=== PATIENT | female | born 1965 | race Caucasian/White ===

== ENCOUNTER → 2020-07-01 | Outpatient (CLI) | payer SELFPAY ==
[~2020-07-01] MED LIST: AMOXICILLIN500 MG PO; ATARAX25 MG PO; DILAUDID8 MG PO; MOTRIN800 MG PO; PREDNISONE20 MG PO; TRAMADOL HCL50 MG PO; TRIMOX500 MG PO
== END | disposition home or self-care (01) ==
LOC: COVID19 13:31
PROVIDERS: ATTEND Internal Medicine
DX: Z20.822 Contact with and (suspected) exposure to COVID-19 (principal)

== ENCOUNTER 2022-01-14 20:24 | Emergency (ER) | payer MEDICAID ==
[2022-01-14 20:30] VITALS: BP 122/71
== END 2022-01-14 23:44 | disposition home or self-care (01) ==
LOC: ED 20:24
DX: H11.32 Conjunctival hemorrhage, left eye (principal); R51.9 Headache, unspecified; Z79.899 Other long term (current) drug therapy

== ENCOUNTER 2022-08-11 18:58 | Emergency (ER) | payer OTHER ==
[~2022-08-11] VITALS: Ht 162.5 cm; Wt 63.5 kg
[2022-08-11 19:24] VITALS: BP 138/77
[2022-08-11 20:01] LABS: BASO % 0.4 % (0.0-1.0); EOS # 0.4 10*3/uL (0.0-0.4); EOS % 4.3 % (1.0-4.0); HEMATOCRIT 39.2 % (37.0-47.0); LYMPH # 0.9 10*3/uL (1.3-4.4); LYMPH % 11.3 % (27.0-41.0); MEAN CELL VOLUME 86.9 fl (81.0-99.0); MEAN CORPUSCULAR HGB 28.6 pg (27.0-31.0); MEAN CORPUSCULAR HGB CONC 32.9 g/dl (33.0-37.0); MEAN PLATELET VOLUME 8.7 fl (9.6-12.3); MONO # 0.7 10*3/uL (0.1-1.0); MONO % 8.6 % (3.0-9.0); NEUT # 6.1 10*3/uL (2.3-7.9); NEUT % 75.3 % (47.0-73.0); PLATELET COUNT AUTOMATED 275 10*3/uL (130-400); RED BLOOD COUNT 4.51 10*6/uL (4.10-5.10); RED CELL DISTRI WIDTH 12.5 % (0-14.5); WHITE BLOOD COUNT 8.1 10*3/uL (4.8-10.8)
[2022-08-11 20:18] LABS: ALKALINE PHOSPHATASE 84 U/L (46-116); BUN 13 mg/dl (9-23); CHLORIDE 106 mmol/L (98-107); POTASSIUM 3.6 mmol/L (3.4-5.1); SGPT/ALT 15 U/L (10-49); TOTAL PROTEIN 7.3 gm/dL (6.0-8.0)
[2022-08-11] MEDS ORDERED: ZITHROMAX500 MG PO (20:40)
[2022-08-11] MEDS ORDERED: PREDNISONE50 MG PO (20:40)
== END 2022-08-11 20:58 | disposition home or self-care (01) ==
LOC: ED 18:58
PROVIDERS: Nurse Practitioner Family
DX: J40 Bronchitis, not specified as acute or chronic (principal); Z98.890 Other specified postprocedural states; Z20.822 Contact with and (suspected) exposure to COVID-19

== ENCOUNTER → 2022-12-25 | Outpatient (CLI) | payer MEDICAID ==
[~2022-12-25] MED LIST changes: +PREDNISONE50 MG PO; +ZITHROMAX500 MG PO
[2022-12-25 12:43] LABS: BASO % 0.7 % (0.0-1.0); EOS # 0.2 10*3/uL (0.0-0.4); EOS % 3.9 % (1.0-4.0); HEMATOCRIT 38.8 % (37.0-47.0); LYMPH # 0.9 10*3/uL (1.3-4.4); LYMPH % 20.2 % (27.0-41.0); MEAN CELL VOLUME 87.2 fl (81.0-99.0); MEAN CORPUSCULAR HGB 28.8 pg (27.0-31.0); MEAN PLATELET VOLUME 8.9 fl (9.6-12.3); MONO # 0.6 10*3/uL (0.1-1.0); MONO % 12.8 % (3.0-9.0); NEUT # 2.7 10*3/uL (2.3-7.9); NEUT % 62.4 % (47.0-73.0); PLATELET COUNT AUTOMATED 324 10*3/uL (130-400); RED BLOOD COUNT 4.45 10*6/uL (4.10-5.10); RED CELL DISTRI WIDTH 12.1 % (0-14.5); WHITE BLOOD COUNT 4.3 10*3/uL (4.8-10.8)
[2022-12-26 05:11] LABS: HBSAG Negative (Negative); HEP B CORE AB, IGM Negative (Negative); HEPATITIS C ANTIBODY Non Reactive (Non Reactive)
== END | disposition home or self-care (01) ==
LOC: LAB 12:06
PROVIDERS: ATTEND Nurse Practitioner Family
DX: Z11.59 Encounter for screening for other viral diseases (principal); F11.20 Opioid dependence, uncomplicated; R53.83 Other fatigue

== ENCOUNTER 2024-04-04 19:50 | Emergency (ER) | payer OTHER, MEDICAID ==
[~2024-04-04] VITALS: Ht 162.6 cm; Wt 59.0 kg
[2024-04-04 19:53] VITALS: BP 128/88
[2024-04-04 20:13] LABS: BASO % 0.6 % (0.0-1.0); EOS # 0.2 10*3/uL (0.0-0.4); EOS % 6.1 % (1.0-4.0); HEMATOCRIT 36.8 % (37.0-47.0); LYMPH # 0.7 10*3/uL (1.3-4.4); MEAN CELL VOLUME 89.3 fl (81.0-99.0); MEAN CORPUSCULAR HGB 28.9 pg (27.0-31.0); MEAN CORPUSCULAR HGB CONC 32.3 g/dl (33.0-37.0); MEAN PLATELET VOLUME 8.8 fl (9.6-12.3); MONO # 0.4 10*3/uL (0.1-1.0); MONO % 11.7 % (3.0-9.0); NEUT # 2.2 10*3/uL (2.3-7.9); NEUT % 61.3 % (47.0-73.0); PLATELET COUNT AUTOMATED 268 10*3/uL (130-400); RED BLOOD COUNT 4.12 10*6/uL (4.10-5.10); RED CELL DISTRI WIDTH 11.8 % (0-14.5); WHITE BLOOD COUNT 3.6 10*3/uL (4.8-10.8)
[2024-04-04] MEDS ORDERED: BUPROPION XL300 MG PO (20:15)
[2024-04-04] MEDS ORDERED: BUPRENORPHINE-1 EAC1 SL (20:15)
[2024-04-04 20:30] LABS: BILIRUBIN Negative (Negative); BLOOD Negative (Negative); CLARITY Clear (Clear); COLOR Yellow (Yellow); GLUCOSE Negative (Negative); KETONE Negative (Negative); LEUKO ESTERASE Negative (Negative); NITRITE Negative (Negative); PH 6.5 (4.5-8.0); SPECIFIC GRAVITY 1.015 (1.001-1.030); UROBILINOGEN 0.2 E.U./dl (0.0-1.0)
[2024-04-04 20:35] LABS: ALKALINE PHOSPHATASE 81 U/L (46-116); BUN 15 mg/dl (9-23); CHLORIDE 107 mmol/L (98-107); LIPASE 35 U/L (12-53); POTASSIUM 3.7 mmol/L (3.4-5.1); SGPT/ALT 16 U/L (5-49)
== END 2024-04-04 22:54 | disposition home or self-care (01) ==
LOC: ED 19:50
PROVIDERS: Nurse Practitioner Family
DX: M54.2 Cervicalgia (principal); R07.9 Chest pain, unspecified; Z79.899 Other long term (current) drug therapy; V89.2XXA Person injured in unspecified motor-vehicle accident, traffic, initial encounter; Y93.I9 Activity, other involving external motion; Y92.488 Other paved roadways as the place of occurrence of the external cause; Y99.8 Other external cause status